=== PATIENT | female | born 1965 | race Caucasian/White ===

== ENCOUNTER 2017-10-08 11:10 | Inpatient (IN) ==
[2017-10-08] MEDS ORDERED: ONDANSETRON 4 MG/2 ML INJECTION IVP ONE (11:16)
[2017-10-08] MEDS ORDERED: NS 1,000 ML IV ONE (11:16)
--- NOTE | 2017-10-08 11:16 | Emergency Department Report ---
GI Bleed HPI - General Stated complaint: recal bleed Time Seen by Provider: 10/08/17 11:15 - Related Data Home Medications Medication Instructions Recorded Confirmed Amlodipine [Norvasc] 10 mg PO DAILY 09/23/17 10/08/17 Atorvastatin [Lipitor] 80 mg PO HS 09/23/17 10/08/17 Lisinopril [Prinivil] 20 mg PO DAILY 09/23/17 10/08/17 Cyclobenzaprine [Flexeril] 10 mg PO TID PRN 10/08/17 10/08/17 Allergies Allergy/AdvReac Type Severity Reaction Status Date / Time morphine Allergy Verified 10/08/17 11:21 PFS Patient Stated Medical History Cerebrovascular Accident Yes: 07/19/17; hemmoragic Hearing Loss Yes: R side Hypertension Yes Asthma Yes Hiatal Hernia Yes Hx Urinary Tract Infection Yes Other Hematologic Blood thinner Other Musculoskeletal Yes: R sided deficit due to CVA Now No - Social History Smoking status: Former smoker Course Vital Signs Temperature 97.7 F 10/08/17 11:11 Pulse Rate 90 10/08/17 11:11 Respiratory Rate 20 10/08/17 11:11 Blood Pressure 122/77 10/08/17 11:11 Pulse Oximetry 99 10/08/17 11:11 Temperature 97.7 F 10/08/17 11:11 Pulse Rate 79 10/08/17 13:31 Respiratory Rate 16 10/08/17 13:31 Blood Pressure 122/70 10/08/17 13:31 Pulse Oximetry 97 10/08/17 13:31 GI Bleed - Lab Data Result diagrams: 10/08/17 11:29 10/08/17 11:29 Lab Results 10/08/17 10/08/17 10/08/17 Range/Units 11:29 11:29 11:29 WBC 14.3 H (4.5-11.0) T/MM3 RBC 4.23 (4.00-5.20) M/MM3 Hgb 12.6 (12-16) GM/DL Hct 38.5 (36-46) % MCV 91.0 (80-100) UM3 MCH 29.8 (26-34) UUG MCHC 32.7 (31-37) GM/DL RDW Std Deviation 42.5 (36.9-50.2) FL Plt Count 338 (130-400) T/MM3 MPV 9.8 (9.4-12.4) UM3 Immature Gran % (Auto) 0.1 (0.0-0.5) % Neut % (Auto) 77.5 H (33-66) % Lymph % (Auto) 16.3 L (23-45) % Dillon % (Auto) 4.7 (0-9.0) % Eos % (Auto) 1.2 (0-4) % Baso % (Auto) 0.2 (0-2) % Neut # (Auto) 11.1 H (1.8-7.7) T/MM3 Lymph # (Auto) 2.3 (1-4.8) T/MM3 Dillon # (Auto) 0.7 (0-0.8) T/MM3 Eos # (Auto) 0.2 (0-0.5) T/MM3 Baso # (Auto) 0.0 (0-0.2) T/MM3 Abs Immat Gran (auto) 0.02 (0.00-0.03) T/MM3 Turbidity < 20 (0-20) Sodium 143 (134-144) MEQ/L Potassium 3.9 (3.6-5) MEQ/L Chloride 105 (98-107) MEQ/L Carbon Dioxide 25 (22-30) MEQ/L Anion Gap 13 (5-15) MEQ/L BUN 23.0 H (7-17) MG/DL Creatinine 0.9 (0.7-1.2) MG/DL GFR Calculation 66 BUN/Creatinine Ratio 26 (6-26) RATIO Glucose 104 (65-110) MG/DL Calculated Osmolality 279 (261-280) MOSM/KG Calcium 9.8 (8.4-10.2) MG/DL Total Bilirubin 0.60 (0.20-1.30) MG/DL Icterus Index < 2 (0-7) AST 17 (14-36) U/L ALT 22 (9-52) U/L Alkaline Phosphatase 131 H (38-126) U/L Total Protein 8.0 (6.3-8.2) G/DL Albumin 4.6 (3.5-5.0) G/DL Globulin 3.4 (2.4-3.6) G/DL Albumin/Globulin Ratio 1.4 (1.1-2.2) RATIO Lipase 42 (23-300) U/L Specimen Hemolysis < 15 (0-25) Ur Collection Type Urine Color (YELLOW) Urine Clarity Urine pH (5.0-8.0) Ur Specific [place] (1.015-1.025) Urine Protein (NEGATIVE) Urine Glucose (UA) (NEGATIVE) Urine Ketones (NEGATIVE) Urine Occult Blood (NEGATIVE) Urine Nitrate (NEGATIVE) Urine Bilirubin (NEGATIVE) Urine Urobilinogen (NORMAL) EU/DL Ur Leukocyte Esterase (NEGATIVE) Urine RBC (0-3) /HPF Urine WBC (0-5) /HPF Ur Squamous Epith Cells Urine Bacteria (NEGATIVE) Urine Mucus Ur Culture Indicated? Blood Type O Positive Antibody Screen Negative 10/08/17 Range/Units 12:08 WBC (4.5-11.0) T/MM3 RBC (4.00-5.20) M/MM3 Hgb (12-16) GM/DL Hct (36-46) % MCV (80-100) UM3 MCH (26-34) UUG MCHC (31-37) GM/DL RDW Std Deviation (36.9-50.2) FL Plt Count (130-400) T/MM3 MPV (9.4-12.4) UM3 Immature Gran % (Auto) (0.0-0.5) % Neut % (Auto) (33-66) % Lymph % (Auto) (23-45) % Dillon % (Auto) (0-9.0) % Eos % (Auto) (0-4) % Baso % (Auto) (0-2) % Neut # (Auto) (1.8-7.7) T/MM3 Lymph # (Auto) (1-4.8) T/MM3 Dillon # (Auto) (0-0.8) T/MM3 Eos # (Auto) (0-0.5) T/MM3 Baso # (Auto) (0-0.2) T/MM3 Abs Immat Gran (auto) (0.00-0.03) T/MM3 Turbidity (0-20) Sodium (134-144) MEQ/L Potassium (3.6-5) MEQ/L Chloride (98-107) MEQ/L Carbon Dioxide (22-30) MEQ/L Anion Gap (5-15) MEQ/L BUN (7-17) MG/DL Creatinine (0.7-1.2) MG/DL GFR Calculation BUN/Creatinine Ratio (6-26) RATIO Glucose (65-110) MG/DL Calculated Osmolality (261-280) MOSM/KG Calcium (8.4-10.2) MG/DL Total Bilirubin (0.20-1.30) MG/DL Icterus Index (0-7) AST (14-36) U/L ALT (9-52) U/L Alkaline Phosphatase (38-126) U/L Total Protein (6.3-8.2) G/DL Albumin (3.5-5.0) G/DL Globulin (2.4-3.6) G/DL Albumin/Globulin Ratio (1.1-2.2) RATIO Lipase (23-300) U/L Specimen Hemolysis (0-25) Ur Collection Type Urine, void-cc/notcc Urine Color Yellow (YELLOW) Urine Clarity Clear Urine pH 6.0 (5.0-8.0) Ur Specific [place] 1.015 (1.015-1.025) Urine Protein Trace A (NEGATIVE) Urine Glucose (UA) Negative (NEGATIVE) Urine Ketones 1+ A (NEGATIVE) Urine Occult Blood 1+ A (NEGATIVE) Urine Nitrate Negative (NEGATIVE) Urine Bilirubin 1+ A (NEGATIVE) Urine Urobilinogen 0.2 (NORMAL) EU/DL Ur Leukocyte Esterase 2+ A (NEGATIVE) Urine RBC 0-1 (0-3) /HPF Urine WBC 10-20 H (0-5) /HPF Ur Squamous Epith Cells 5-10 Urine Bacteria Trace H (NEGATIVE) Urine Mucus Present Ur Culture Indicated? Cult not indicated Blood Type Antibody Screen Disposition Clinical Impression: Colitis Disposition: 02 To [facility] [place] Acute Care Condition: Stable Prescriptions: No Action Lisinopril [Prinivil] 20 mg PO DAILY Amlodipine [Norvasc] 10 mg PO DAILY Atorvastatin [Lipitor] 80 mg PO HS Cyclobenzaprine [Flexeril] 10 mg PO TID PRN PRN Reason: Muscle Spasm Referrals: Demarcus Avila DO [Family Provider] - Time of Disposition: 13:32 - Seen By: physician
[2017-10-08] MEDS: SALINE FLUSH 10ml SYRINGE IVF PRN (11:27)
[2017-10-08] MEDS ORDERED: FentaNYL 100 MCG/2 ML INJECTION IVP ONE ×2 (11:40→13:27)
[2017-10-08] MEDS ORDERED: SALINE FLUSH 10ml SYRINGE ONE (12:16)
[2017-10-08] MEDS ORDERED: IOHEXOL 300mg/ml 75ml INJECTION ONE (12:16)
--- NOTE | 2017-10-08 12:52 | CT Scan Report ---
Indication: left lower quadrant abdominal pain question diverticulitis v PROCEDURE: CT abdomen pelvis w con: Encounter: Initial Comparison: None Technique: Axial CT images were performed through the abdomen and pelvis after the administration of intravenous contrast. Coronal and sagittal two-dimensional reformats. Automated Exposure Control and Iterative Reconstruction dose reducing techniques were utilized. Contrast: Omnipaque 300 67 mL Findings: The lung bases are grossly clear. The liver is normal. The gallbladder is unremarkable. The spleen is normal. The pancreas is normal. The adrenal glands are normal. Right kidney is abnormal in appearance with a partial staghorn calculus seen measuring 2.5 x 1.5 cm in the lower half of the kidney. There is associated cortical loss and scarring with prominent cortical cysts and dilated lower pole calyces with prominent stones. Left kidney shows small nonobstructing stones and a few small upper pole cysts. No abdominal or pelvic lymphadenopathy. The bladder is thick walled but decompressed. The uterus is absent. Trace free pelvic fluid. There is significant inflammation and wall thickening involving the proximal to mid sigmoid colon extending through the descending colon to the level of the splenic flexure. There is significant pericolonic inflammatory fat stranding. No extraluminal gas or abscess. No evidence of a colon obstruction. No evidence of a small bowel obstruction. The celiac, SMA and LEXIE appear patent. Only mild atherosclerotic plaque is seen in the abdominal aorta. Bone windows show postoperative changes at the pubic symphysis. Mild degenerative change in the spine. Impression: 1. Long segment inflammation of the left colon. This is too extensive for diverticulitis. Differential considerations would include infectious or inflammatory colitis such as C. difficile colitis, Crohn's disease or ulcerative colitis. 2. Bilateral nephrolithiasis with a large staghorn type calculus seen in the right kidney. .
[2017-10-08] MEDS ORDERED: CIPROFLOXACIN IVPB 400 MG/200 ML BAG IV SCH (13:58)
[2017-10-08] MEDS ORDERED: MetroNIDAZOLE PB 250 MG/50 ML BAG IV SCH (13:58)
[2017-10-08] MEDS: NS 1,000 ML IV SCH ×2 (14:08→21:59)
[2017-10-08] MEDS: FentaNYL 100 MCG/2 ML INJECTION IVP PRN ×3 (15:52→21:56)
--- NOTE | 2017-10-08 16:43 | History & Physical Report ---
History of Present Illness Date: 10/08/17 Chief complaint: colitis and gastrointestinal bleeding. HPI: patient was in her usual state of health until yesterday evening. at that time she started in with acute left lower quadrant abdominal pain. she initially had several episodes of nausea and normal appearing vomitus which progressed to bright red bloody stools and diarrhea. she had about 4 episodes of vomiting and overall about 10 episodes of bright red bloody stools. she was scheduled for routine follow in the clinic today but immediately sent to the ER for further workup. in the ER she received copious amounts of IV normal saline and fentanyl prn for the pain. cbc was noted to have a WBC of about 14,000 and was otherwise normal. cmp was generally unremarkable. a UA did show some evidence of a UTI. a CT of the abdomen and pelvis was noted to demonstrate a significant colitis with the differential being inflammatory bowel versus infectious in nature. patient was initially noted to be lightheaded upon standing but this has improved. patient was initially tachycardiac in the clinic with HR's in the 110's but this has resolved with IV fluids. otherwise vitals have been stable. she is otherwise currently stable at this time. no fevers. maybe some mild chills. some moderate generalized fatigue and weakness. no falls, trauma, injuries. no new or changing headaches. no photophobia or meningeal symptoms. has had antibiotics for a UTI within the last couple of months but no other antibiotic exposures. no recent travel, camping, sick exposures, rosales exposures, outdoor exposures. no new rashes or skin changes. dizziness improved with IV fluids. no vertigo, ear pain, sinus pain, sore throat, runny nose. no new or changing numbness/weakness/tingling/ pain in extremities or anywhere else. no new deficits from when she had her stroke a few months ago. lightheaded episodes would last a few seconds to a couple of minutes and only when she's get up briskly from a seated or supine position. as noted, this has improved per report. no confusion, altered mentation, obtundation, encephalopathic symptoms, meningeal symptoms, photophobia. no chest pain, SOA, orthopnea, PND, new edema, leg asymemtry, changes in exertional tolerance. no palpitations, cough, sputum production, hemoptysis. no new or changing boggy/inflammed/swollen/painful joints or focal muscle groups. no other abdominal pain. no nausea/vomiting since last night. has been able to keep fluids down. very little solid oral intake. appetite diminished. no unintentional weight loss, night sweats, constitutional symptoms. no hematemesis, coffee ground emesis, melena. no constipation. stools bloody/watery as noted above. has had some moderate burning with urination over the last few days. no flank pain, nocturia, urinary frequency, hematuria, urinary/bowel incontinance, urinary retention. no homicidal/ suicidal ideations. ROS negative for food borne illness and risk factors thereof. 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 no new issues othewise at is time. Review of Systems - Constitutional Constitutional: Present: as per HPI - EENMT Eyes: Present: as per HPI Ears: Present: as per HPI Balance: Present: as per HPI Nose: Present: as per HPI Mouth/Throat: Present: as per HPI - Cardiovascular Cardiovascular: Present: as per HPI Vascular: Present: see HPI Cardiovascular Comments: no pallor or cyanosis of extremities. - Respiratory Respiratory: Present: as per HPI - Gastrointestinal Gastrointestinal: Present: as per HPI - Genitourinary Genitourinary: Present: as per HPI Menstruation: as per HPI Genitourinary Comments: no pelvic pain or abnormal vaginal bleeding. not trying to get and not . - Musculoskeletal Musculoskeletal: Present: as per HPI - Integumentary/Breasts Integumentary: Present: as per HPI - Neurological Neurological: Present: as per HPI - Psychiatric Psychiatric: Present: as per HPI - Endocrine Endocrine: Present: as per HPI - Hematologic/Lymphatic Hematologic/Lymphatic: Present: as per HPI - Allergic/Immunologic Allergic/Immunologic: Present: as per HPI (see above for allergies and ADR's. ) Past Medical History Patient Stated Medical History Cerebrovascular Accident Yes: 07/19/17; hemmoragic Hearing Loss Yes: R side r/t stroke Hypertension Yes Asthma Yes Hiatal Hernia Yes Hx Urinary Tract Infection Yes Other Musculoskeletal Yes: R sided deficit due to CVA Other Infectious Yes: post op staph infection Now No hyperlipidemia Surgical History: -hysterectomy. -hernia repair. -cystocele/rectocele repair. -laminectomy Family History: -father alive, diagnosed with hypertension and CAD. -mother at age 62. had HTN. Family History Updates: -see above. - Social History Smoking status: Former smoker Social history: -former smoker. does sound like she still occasionally smokes. -no significant alcohol use. -no illicit drug or substance use. -lives at home with ex-. Medications Home Medications Medication Instructions Recorded Confirmed Type Amlodipine [Norvasc] 10 mg PO DAILY 09/23/17 10/08/17 History Atorvastatin [Lipitor] 80 mg PO HS 09/23/17 10/08/17 History Lisinopril [Prinivil] 20 mg PO DAILY 09/23/17 10/08/17 History Cyclobenzaprine [Flexeril] 10 mg PO TID PRN 10/08/17 10/08/17 History Allergies Allergy/AdvReac Type Severity Reaction Status Date / Time morphine Allergy Verified 10/08/17 11:21 Exam Vital Signs: Temperature 97.3 F 10/08/17 13:58 Pulse Rate 71 10/08/17 13:58 Respiratory Rate 18 10/08/17 13:58 Blood Pressure 124/78 10/08/17 13:58 Pulse Oximetry 96 10/08/17 13:58 Height/Weight/BMI: Height 1.65 m Weight 56.7 kg Body Mass Index 20.7 - Constitutional Present: cooperative Comments: not combative, agitated or somnolent. appears mildly ill in clinic. - Routine HEENT Exam Head: Present: normocephalic, atraumatic Eye: Present: EOMI, PERRL ENT: Present: mucous membranes dry (moderately dry.) Comments: nares patent, pat normal. TM's clear b/l at this time. external auditory canals normal b/l at this time. no sinus pain to palpation. throat clear. no mastoid tenderness b/l at this time. no photophobia. no clinical evidence of meningitis at this time. no nuchal rigidity. - Routine Neck Exam Present: supple Comments: no JVD. see above. - Routine Chest/Breast/Axilla Exam Comments: no chest wall tenderness. - Routine Respiratory Exam Comments: LCTAB. no crackles, wheezes, rales. lung sounds heard in all lung victoria b/l at this time. moving air well. lung sounds heard in all lung victoria b/l at this time. no respiratory distress, retractions, accessory muscle use, stridor , airway compromise b/l at this time. - Routine Cardiovascular Exam Present: RRR, no murmur Comments: cardiac exam unchanged from usual baseline. no new edema. legs symmetrical and compartments soft b/l in LE's at this time. clinically well perfused in all 4 extremities b/l at this time. no boggy/inflammed/swollen/tender joints or focal muscle groups b/l at this time. no pallor or cyanosis in extremities. - Routine Abdominal Exam Present: soft (X4.), normoactive bowel sounds (X4.), tenderness (moderate tenderness to moderately deep palpation in LLQ. no other abdominal tenderness to palpation in any of the other quadrants of abdomen at this time. ), non distended (X4.) Comments: no rebound, guarding, rigidity, organomegally, ascites, jaundice, distension. bowel sounds mildly hyperactive in all 4 quadrants at this time. - Routine Rectal Exam Comments: see rectal exam done in ER by ER physician. - Routine Exam Comments: no tenderness over bladder area. no clinical evidence of upper or lower UTI at this time. - Routine Extremities Exam Comments: no pallor or cyanosis of extremities. see the above. - Routine Back/Spine/Pelvis Exam Comments: see above. - Routine Skin Exam Present: intact Comments: no skin changes from previous to uncovered areas at current time. - Routine Neurological Exam Present: alert, oriented X3, CN II-XII intact sensation/motor/muscle strength/DTR's unchanged from patient's usual baseline in extremities b/l X4 at this time. no clinical evidence of encephalopathy, delerium, michell, altered mentation, confusion, obtundation. alert and oriented X3 and to patient's usual baseline. - Routine Psychiatric Exam Present: normal affect, normal thought process, cooperative Comments: no homicidal/suicidal ideations. no changes from usual baseline. Results - Labs CBC & Chem 7: 10/08/17 22:08 10/08/17 11:29 Assessment and Plan Assessment and Plan: acute lower gastrointestinal bleed and colitis of uncertain etiology, most likely infectious but inflammatory bowel/neoplastic in the differential as well. acute cystitis leukocytosis secondary to the above. 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 no episodes of bleeding since admission. neurologically stable at this time. -follow cbc, coag panel, TSH, magnesium now. see above for other testing and results from this stay. patient is typed and screened. check H and H every 6 hours and call parameters provided. -urine culture pending. -continue IV normal salinen at 125ml/hr and patient bolused with normal saline already in ER. continue IV cipro and flagyl. continue IV fentanyl for pain. if nausea/vomiting become an issue will write for zofran. -hold home PO tylenol, lisinopril, norvasc, lipitor. patient's bp in 90's systolic in clinic but has been normotensive since IV fluids. will watch bp for now. may need to provide and IV prn medication for bp but will see. -Dr. Dunlap, surgery consulted for GI bleed and for possible endoscopy. tobacco use -patient notes very little smoking. if any s/s withdrawal would consider nicotine patch. all other chronic medical conditions stable and no other changes to plan of care at this time. ppx -SCD's for DVT ppx. pharmacologic DVT ppx contraindicated secondary to GI bleed. -restart PO diet ELENA for GI ppx. -FULL CODE -dispo heavily dependent on the above. DVT Prophylaxis: SCD's GI Prophylaxis: other (restart PO diet as soon as able.) Resuscitation Status: Full Code - Time spent with patient Time with patient PN: 50 minutes Sepsis Assessment - Evaluation SIRS Criteria: WBC > 12,000 Severe Sepsis: none seen
[2017-10-08] MEDS: MetroNIDAZOLE PB 500 MG/100 ML BAG IV SCH (22:49)
[2017-10-09] MEDS: FentaNYL 100 MCG/2 ML INJECTION IVP PRN ×12 (00:47→23:33)
[2017-10-09] MEDS: CIPROFLOXACIN IVPB 400 MG/200 ML BAG IV SCH ×2 (04:11→17:03)
[2017-10-09] MEDS: MetroNIDAZOLE PB 500 MG/100 ML BAG IV SCH ×3 (05:23→22:21)
[2017-10-09] MEDS: SALINE FLUSH 10ml SYRINGE IVF PRN ×2 (05:24→20:24)
[2017-10-09] MEDS: NS 1,000 ML IV SCH ×3 (07:15→11:16)
--- NOTE | 2017-10-09 09:02 | Progress Note ---
- Date 10/09/17 Subjective: no acute events overnight. no events called on telemetry. patient did well on clear liquids. abdominal pain improved significantly as has number of stools. was feeling good and attempted a regular diet. ate all her supper but has developed nausea now. abdominal pain in LLQ has come back now as well. as the interview goes on both of these issues improve though. still passing flatus normally. no new or worsening abdominal distension. last bloody BM was earlier today but last BM 2 hours ago patient states was more formed and there was no gross blood in it. she did have X4 bloody bowel movements yesterday with the same morphology as that which got her admitted. she is optimistic this has resolved. vitals have been stable in general. no new or changing headaches, stroke symptoms, focal neurologic deficits, fevers , chills, body aches. doesn't feel nearly as systemically unwell now as she did yesterday and for this she is thankful. no new or changing skin changes, new rashes, boggy/inflammed/painful/swollen focal joints or muscle groups. no new or changing ear pain, sinus pain, sore throat, URI symptoms. no new or changing runny nose, chest pain, SOA, orthopnea, PND, new edema, leg asymmetry, changes in exertional tolerance, palpitations, cough, sputum production, hemoptysis. no new abdominal pain. no GERD symptoms, vomiting, constipation, melena. no nausea until just now. no other GI warning symptoms other than as noted. no mood changes, depression symptoms, anxiety, altered mentation, confusion, obtundation, psychosis, michell. no dysuria, hematuria, urinary frequency, flank pain, nocturia, urinary/bowel incontinance, urinary retention, polyuria, oliguria, other urinary symptoms/changes. urinary symptoms from admission resolved at this time. no meningeal symptoms. dizziness and orthostatic symptoms from yesterday have completely resolved. no new issues otherwise at this time. Objective Vital signs: Temperature 96.2 F L 10/09/17 08:01 Pulse Rate 63 10/09/17 08:01 Respiratory Rate 14 10/09/17 08:01 Blood Pressure 90/61 10/09/17 08:01 Pulse Oximetry 90 10/09/17 08:01 Rhythm: Normal Sinus Rhythm Height/Weight/BMI: Height 1.65 m Weight 59.8 kg Body Mass Index 20.7 - Constitutional Present: no acute distress, cooperative. Absent: cachectic, diaphoretic, disheveled, combative, agitated, somnolent, obtunded - Routine HEENT Exam Head: Present: normocephalic, atraumatic ENT: Present: mucous membranes moist - Routine Respiratory Exam Present: CTA bilaterally. Absent: accessory muscle use, patient mechanically ventilated, dyspnea, decreased breath sounds, prolonged expiratory phase, rales , respiratory distress, rhonchi, stridor, wheezes, crackles, distant breath sounds, diminished air movement Comments: lung sounds heard in all lung victoria b/l at this time. all findings above bilateral unless otherwise noted. - Routine Cardiovascular Exam Present: RRR, no murmur Comments: cardiac exam unchanged from previous baseline. no new edema. legs symmetrical and compartments soft b/l in LE's at this time. clinically well perfused in all 4 extremities b/l at this time. no boggy/inflammed/swollen focal joints or muscle groups. no pallor or cyanosis of extremities. - Routine Abdominal Exam Present: soft (X4.), normoactive bowel sounds (X4.), tenderness (in LLQ to deep palpation, moderate tenderness noted. this is improved from yesterday though.) , non distended (X4.). Absent: non tender (see above. ), distended (see above. ), rebound, guarding, firm, rigid, organomegaly, mass Comments: no ascites, distension, jaundice. - Routine Exam Comments: no tenderness over bladder area. no clinical evidence of upper or lower UTI b/ l at this time. - Routine Extremities Exam Absent: cyanosis, joint swelling, pallor, extremity cold to touch Comments: see above. - Routine Back/Spine/Pelvis Exam Comments: see the above. - Routine Musculoskeletal Exam Musculoskeletal: Present: no joint swelling, no erythema, moving extremities well. Absent: joint erythera, joint swelling - Routine Skin Exam Present: intact Comments: no skin changes from previous to uncovered areas. - Routine Neurological Exam Present: alert, oriented X3 no changes neurologically from previous baseline in all 4 extremities b/l at this time. cranial nerves grossly unchanged from usual baseline. affect and cognition unchanged from usual baseline. no clinical evidence of michell, depression, anxiety, altered mentation, confusion, obtundation, encephalopathy, psychosis, delerium at this time. - Routine Psychiatric Exam Present: normal affect, normal thought process, cooperative. Absent: suicidal ideation, homicidal ideation, auditory hallucinations, visual hallucinations, tactile hallucinations, depressed, anxious, agitated, paranoid, manic Comments: see the above. Results - Labs CBC & Chem 7: 10/09/17 13:58 10/09/17 05:20 Microbiology Results: Microbiology 10/08/17 18:09 Urine, Voided (Cc/notcc) Urine Culture - Preliminary Culture Initiated - Results Pending Assessment and Plan Assessment and Plan: acute lower gastrointestinal bleed and colitis secondary to c-diff colitis acute cystitis leukocytosis secondary to the above, resolved. dilutional and mild blood loss anemia mild fasting hyperglycemia, likely from stress. nausea secondary to diagnosis number one subclinical hyperthyroid, likely from acute illness mild elevation in alk phos on admission, resolved. 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 remind nursing to call if any bloody stools as we would consider a move to the ICU should this reoccur. continue telemetry. patient current nausea and ab pain after eating would suggest we need to scale back on her diet as noted above. will go back to clear liquids and advance as tolerated. patient's symptoms improve significantly as interview goes on which is a good sign. -cbc's with resolved leukocytosis and mild dilutional/blood loss anemia which is stable over the last couple of draws. otherwise cbc's unremarkable. cmp's with normal LFT's now, mild hyperglycemia in 120's and otherwise unremarkable. TSH a bit low at 0.36. magnesium and coag panels look ok. see previous notes for other testing and results from this stay. stool wbc positive and stool PCR with c-diff and otherwise unremarkable. patient is typed and screened. -urine culture pending. -follow H and H q12hrs with call parameters. cbc, cmp, free T3, free T4 ordered for the AM. -continue IV normal saline as is for now. have to continue IV cipro now given UTI and on day 2 of this. continue IV flagyl and increased to 500mg IV q8hrs. this is on day 2 as well. continue IV fentanyl prn for pain. zofran IV prn provided for nausea/vomiting. -continue to hold home PO tylenol, lisinopril, norvasc, lipitor. patient's bp's have often been low before and she's not out of her normal range at this time but wouldn't want to go any lower. she has generally been normotensive. -Dr. Dunlap, surgery consulted for GI bleed and for possible endoscopy. plan is to not do endoscopy until current acute episode is resolved. this may change if she re-bleeds. COPD -restart patient's symbicort BID scheduled and ventolin prn. tobacco use -no s/s tobacco withdrawal. if any s/s withdrawal would consider nicotine patch. all other chronic medical conditions stable and no other changes to plan of care at this time. ppx -SCD's for DVT ppx. pharmacologic DVT ppx contraindicated secondary to GI bleed. -PO diet as above for GI prophylaxis. -FULL CODE -dispo maybe discharge as soon as tomorrow but most likely Saturday at this trajectory. DVT Prophylaxis: SCD's GI Prophylaxis: other (PO diet.) Resuscitation Status: Full Code - Time spent with patient Time with patient PN: 25 minutes - Physician Narrative Narrative: Date: 10/09/17 Time: 818 Sepsis Assessment - Evaluation Severe Sepsis: none seen
--- NOTE | 2017-10-09 17:07 | Consultation ---
DATE OF CONSULTATION 10/08/2017 CONSULTING PHYSICIAN Marlon Irby MD REQUESTING PHYSICIAN Dr. Demarcus Avila. REASON FOR CONSULTATION Infectious versus inflammatory colitis. IMPRESSION 1. Left-sided colitis - most likely infectious in etiology. 2. GI bleeding - likely resultant from colitis. 3. Status post recent hemorrhagic stroke on 07/13/2017. PLAN 1. Prior to any consideration of endoscopy Yaneli will need a GI panel to see if an infectious etiology for her colitis is discovered. 2. I do think that Yaneli needs a colonoscopy since she is over age 51 but if she has infectious colitis I would not want to perform her colonoscopy during active colitis if it is not necessary. 3. Even if infectious colitis is determined as her etiology she will need colonoscopy based on her age. I would perform this after a period of three months if the colitis is infectious in etiology. 4. If an infectious etiology is not confirmed then she will need colonoscopy to obtain biopsies of the colon to try to help determine the etiology of her colitis. HISTORY OF PRESENT ILLNESS Yaneli is a 52-year-old female who has never had prior colonoscopy. She does have a history complicated by hemorrhagic stroke on 07/13/2017. This has left her with right-sided deficits of a lack of sensation and some motor problems. She has felt more weak lately. She has also felt dizzy and like she was going to pass out for the last three weeks. Yesterday she had five episodes of vomiting. She then started passing some bright red blood per rectum. Her bleeding started at around 7:00 p.m. She had seven to eight stools which were bright red blood along with some clots. She had a clinic appointment scheduled so she waited to be seen at [facility] but was then referred to the emergency department. She did have Hemoccult-positive stools and a CT scan was performed that showed colitis involving the left colon. She has had abdominal pain that she describes as sharp and stabbing pain. She has some pain constantly and her pain is 4/10 at its best. She will have brief episodes of more severe pain that increase up to 9 out of 10 in severity. She does feel like her pain is better with pain medication and has been as low as 3 out of 10 in severity. She only notices pain on the left side of the abdomen but she is unsure if she would have any symptoms on the right due to her stroke. PAST MEDICAL HISTORY 1. Frequent urinary tract infections - she has had five courses of antibiotics recently. 2. Sepsis as a result of postoperative Staphylococcus infection - 2006. 3. Hemorrhagic stroke - 07/13/2017. 4. Hypertension. 5. Right breast cancer - only treated with chemotherapy and radiation therapy. She was not willing to proceed with surgery. Her oncologist is Dr. Farah. She was diagnosed in approximately 2009. 5. Asthma. PAST SURGICAL HISTORY 1. Vaginal hysterectomy - age 29. 2. Unilateral oophorectomy - age 30. 3. Contralateral oophorectomy - age 14. 4. Cystocele and rectocele repair - age 41. 5. Laminectomy - 2006. ALLERGIES Morphine which causes hives. MEDICATIONS The patient's home medications were reviewed. See the admission medical reconciliation. SOCIAL HISTORY The patient is single. She has three healthy children. She says she quit smoking in August 2017. She was a [id number] smoker but started smoking at age 17 for an approximate history of less than 15 pack-years of smoking. She drank previously but has not drunk any alcohol lately. She denies illicit drug use. FAMILY HISTORY Father - Stroke, heart problems. Mother - Emphysema, hypertension, diabetes mellitus. Maternal grandfather - stroke. Maternal grandmother - heart disease. Paternal grandfather - prostate cancer. Paternal grandmother - unknown cancer. REVIEW OF SYSTEMS Ten-point review of systems was negative except for History of Present Illness and the following: NEUROLOGIC: She reports a headache today. She has had some hearing and vision problems on the right since her stroke. She has also had decreased sensation on the right side and some motor deficits on the right. RESPIRATORY: She does use an as-needed inhaler. GENITOURINARY: She reports dysuria and frequent urinary tract infections lately. PHYSICAL EXAMINATION VITAL SIGNS: Temperature 96.7, pulse 72, blood pressure 120/79, respiratory rate 12, oxygen saturation 94% on room air. GENERAL: The patient is awake, alert, in no acute distress. HEENT: Sclerae clear. Extraocular muscles intact. NECK: Supple with a midline trachea. No lymphadenopathy or thyromegaly are noted. HEART: Regular rate and rhythm. LUNGS: Clear to auscultation bilaterally. ABDOMEN: Soft, tender along the left abdomen. She has no tenderness in the right abdomen. There is no guarding or rebound noted. No masses are noted. No organomegaly or fluids are noted. EXTREMITIES: No clubbing, cyanosis or edema. NEUROLOGIC: Cranial nerves II-XII are grossly intact. 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 She also reports decreased sensation on the right half of the body. PSYCHIATRIC: Normal mood and affect. LABORATORY DATA White blood cell count 14.3, hemoglobin 12.6. IMAGING CT scan of the abdomen and pelvis from today was personally reviewed by me as well as with the radiology report. There was significant inflammation along the left colon through the mid sigmoid colon. The rectum was spared. No abscess was identified. PATIENT EDUCATION The situation was discussed with the patient and her friend who is present. I did explain the need to await stool testing prior to colonoscopy. GALDINO
[2017-10-09 17:12] VITALS: BMI 21.9
[2017-10-09] MEDS ORDERED: ONDANSETRON 4 MG/2 ML INJECTION IVP PRN (20:18)
[2017-10-09] MEDS ORDERED: ALBUTEROL 2.5mg/3ml (0.083%) NEB AEROSOL PRN (20:56)
[2017-10-10] MEDS: FentaNYL 100 MCG/2 ML INJECTION IVP PRN ×10 (00:55→22:44)
[2017-10-10] MEDS: BUDESONIDE/FORMOTEROL 80/4.5mcg INHALER IH SCH ×3 (02:58→20:29)
[2017-10-10] MEDS: NS 1,000 ML IV SCH ×3 (04:18→22:46)
[2017-10-10] MEDS: CIPROFLOXACIN IVPB 400 MG/200 ML BAG IV SCH (04:19)
[2017-10-10] MEDS: MetroNIDAZOLE PB 500 MG/100 ML BAG IV SCH ×3 (06:27→22:24)
[2017-10-10] MEDS: ALBUTEROL 2.5mg/3ml (0.083%) NEB AEROSOL SCH ×4 (07:44→20:36)
[2017-10-10] MEDS ORDERED: BUDESONIDE/FORMOTEROL 80/4.5mcg INHALER IH SCH (09:00)
--- NOTE | 2017-10-10 09:52 | Progress Note ---
DATE OF VISIT 10/09/2017 REASON FOR VISIT Follow colitis. SUBJECTIVE Yaneli continues to have some left-sided abdominal pain. She has had some passage of bright red blood per rectum and her current nurse reported one episode this morning. She has tolerated a clear liquid diet well. She is having some difficulty with pain control. OBJECTIVE VITALS: Afebrile with stable vitals on room air. GENERAL: The patient is awake and alert, in no acute distress. ABDOMEN: Soft, tender along the left abdomen with no guarding or rebound noted. LABORATORY DATA White blood cell count was 10.6. Hemoglobin had increased to 11.7 on recheck this afternoon. GI panel revealed a positive C. difficile toxin. IMPRESSION 1. C. difficile colitis. 2. GI bleeding - likely related to colitis. Her hemoglobin has been stable. 2. Recent hemorrhagic stroke in July of 2017. PLAN 1. Given the infectious etiology for her colitis, I do not think that colonoscopy should be performed currently. 2. Continue Flagyl for treatment of C. difficile colitis. 3. I do think she will need a screening colonoscopy, but given her history of stroke I think this should be 6 months from her stroke. This would be in January 2018. 4. I will sign off of her case since there does not appear to be need of endoscopy currently. Please do not hesitate to contact me if I can be of any further assistance. GALDINO
--- NOTE | 2017-10-10 16:05 | Progress Note ---
- Date 10/10/17 Subjective: no acute issues overnight. no events called on telemetry. patient doing remarkably well. abdominal pain improved greatly. has been tolerating PO intake well today. had X1 mostly formed, normal appearing stool since our last visit. no bloody/black stools. no new abdominal pain. no fevers, chills, fatigue, weakness, falls, trauma, injuries, URI symptoms, skin changes, new rashes, boggy/inflammed/painful/swollen focal joints or muscle groups. no headaches, photophobia, meningeal symptoms, encephalopathic symptoms. no ear pain, sinus pain, runny nose. no dizziness, syncope, orthostatic symptoms, vitals have been stable. no dysuria, hematuria, urinary frequency, flank pain, nocturia, urinary/bowel incontinance, urinary retention. no seizure symptoms, stroke symptoms, focal neurologic deficits, cranial nerve symptoms/deficits, photophobia, meningeal symptoms, chest pain, SOA, heart failure symptoms, palpitation, cough, sputum production, hemoptysis. no hematemesis or coffee ground emesis. no GERD symptoms. no confusion, altered mentation, obtundation , depression, anxiety, homicidal/suicidal ideations. male friend present for most of encounter today. no new issues otherwise at this time. Objective Vital signs: Temperature 98.8 F 10/10/17 15:50 Pulse Rate 68 10/10/17 15:50 Respiratory Rate 16 10/10/17 15:50 Blood Pressure 121/73 10/10/17 15:50 Pulse Oximetry 96 10/10/17 15:50 Rhythm: Normal Sinus Rhythm Height/Weight/BMI: Height 1.65 m Weight 60.4 kg Body Mass Index 21.9 - Constitutional Present: no acute distress, cooperative. Absent: cachectic, diaphoretic, disheveled, combative, agitated, somnolent, obtunded - Routine HEENT Exam Head: Present: normocephalic, atraumatic ENT: Present: mucous membranes moist - Routine Respiratory Exam Present: CTA bilaterally. Absent: accessory muscle use, patient mechanically ventilated, dyspnea, decreased breath sounds, prolonged expiratory phase, rales , respiratory distress, rhonchi, stridor, wheezes, crackles, distant breath sounds, diminished air movement Comments: lung sounds heard in all lung victoria b/l at this time. no respiratory distress. all findings above bilateral unless otherwise noted. - Routine Cardiovascular Exam Present: RRR, no murmur Comments: cardiac exam unchanged from usual baseline. no new edema. no boggy/inflammed/ swollen focal joints or muscle groups. no pallor or cyanosis of extremities b/ l X4. legs symmetrical and compartments soft b/l in LE's at this time. clinically well perfused in all 4 extremities b/l at this time. - Routine Abdominal Exam Present: soft (X4.), normoactive bowel sounds (X4.), tenderness (mild tenderness to deep palpation only in LLQ. this is much improved from last exam. no other tenderness in abdomen X4 quadrants. ), non distended (X4.), non tender (see above. much improved. ). Absent: distended (x4.), rebound, guarding, firm, rigid, organomegaly, mass Comments: no ascites, jaundice, distension at this time. - Routine Exam Comments: no tenderness over bladder area. no clinical evidence of upper or lower UTI b/ l at this time. - Routine Extremities Exam Absent: cyanosis, joint swelling, pallor, extremity cold to touch Comments: no new edema b/l in LE's at this time. - Routine Back/Spine/Pelvis Exam Comments: see the above. - Routine Musculoskeletal Exam Musculoskeletal: Present: no joint swelling, moving extremities well. Absent: no erythema, joint erythera, joint swelling - Routine Skin Exam Present: intact Comments: no skin changes from previous to uncovered areas b/l at this time. - Routine Neurological Exam Present: alert, oriented X3 no changes neurologically from usual baseline in extremities b/l X4 or to cranial nerves grossly. no clinical evidence of depression, michell, altered mentation, confusion, obtundation, encephalopathy, psychosis, delerium at this time. no changes from usual baseline. - Routine Lymphatic Exam Lymphatic: Absent: lymphedema - Routine Psychiatric Exam Present: normal affect, normal thought process (for patient.), cooperative. Absent: auditory hallucinations, visual hallucinations, tactile hallucinations, depressed, anxious, agitated, paranoid, manic Comments: see the above. Results - Labs CBC & Chem 7: 10/10/17 16:17 10/10/17 04:08 Microbiology Results: Microbiology 10/08/17 18:09 Urine, Voided (Cc/notcc) Urine Culture - Final Mixed Bacterial Arlette Present -No further testing will be performed Assessment and Plan Assessment and Plan: acute lower gastrointestinal bleed and colitis secondary to c-diff colitis acute cystitis leukocytosis secondary to the above, resolved. dilutional and mild blood loss anemia mild fasting hyperglycemia, likely from stress. nausea secondary to diagnosis number one subclinical hyperthyroid, likely from acute illness mild elevation in alk phos on admission, resolved. recent hemorrhagic CVA in July of last year HTN hyperlipidemia -continue inpatient, vitals with call parameters, I's and O's, daily weights , oxygen as needed, up with assist only, nursing to call for any blood stools, telemetry, advancing diet as tolerated. start ambulating TID with assist. will make vitals q8hrs now. -cbc's with resolved leukocytosis and hgb down to low/mid-10's. hct down accordingly as well. otherwise cbc's unremarkable from previous. urine culture negative. cmp's with mild hyperglycemia and otherwise unremarkable. see previous notes for other testing and results from this stay. -free T3 and free T 4 pending. -continue H and H q12hrs with call parameters. free T3 and free T4 pending. cbc, cmp in the AM. -d/c IV fluids now. convert IV flagyl to PO. d/c IV fentanyl and convert to prn norco. d/c IV zofran and convert to ODT form. -d/c IV cipro as urine culture negative. if urinary symptoms return will likely restart but want to give the flagyl an unopposed chance to do it's job. -continue to hold home PO tylenol, lisinopril, norvasc, lipitor. -Dr. Dunlap, surgery consulted for GI bleed and for possible endoscopy. plan is to not do endoscopy until current acute episode is resolved. this may change if she re-bleeds. COPD -continue patient's symbicort BID scheduled and ventolin prn. tobacco use -no s/s tobacco withdrawal. if any s/s withdrawal would consider nicotine patch. all other chronic medical conditions stable and no other changes to plan of care at this time. ppx -SCD's for DVT ppx. pharmacologic DVT ppx contraindicated secondary to GI bleed. -PO diet as above for GI prophylaxis. -FULL CODE -dispo discharge possible for tomorrow but will have to see. keep as inpatient today. DVT Prophylaxis: SCD's GI Prophylaxis: other (PO diet as noted above. ) Resuscitation Status: Full Code - Time spent with patient Time with patient PN: 25 minutes - Physician Narrative Narrative: Date: 10/10/17 Time: 1601 Sepsis Assessment - Evaluation Severe Sepsis: none seen
[2017-10-10] MEDS: SALINE FLUSH 10ml SYRINGE IVF PRN ×2 (20:24→22:25)
[2017-10-10] MEDS ORDERED: ONDANSETRON ODT 4 MG TABLET PO PRN (22:53)
[2017-10-10] MEDS: MetroNIDAZOLE 500 MG TABLET PO SCH (23:35)
[2017-10-11] MEDS: HYDROCODONE/APAP 5mg/325mg TABLET PO PRN ×3 (00:48→09:49)
[2017-10-11] MEDS: MetroNIDAZOLE PB 500 MG/100 ML BAG IV SCH (01:52)
[2017-10-11 08:03] VITALS: BP 125/78; TEMP 96.5
[2017-10-11] MEDS: MetroNIDAZOLE 500 MG TABLET PO SCH (08:06)
[2017-10-11] MEDS: BUDESONIDE/FORMOTEROL 80/4.5mcg INHALER IH SCH ×2 (08:44→20:13)
[2017-10-11] MEDS: ALBUTEROL 2.5mg/3ml (0.083%) NEB AEROSOL SCH ×4 (08:45→20:12)
[2017-10-11 08:55] VITALS: RESP 20; O2SAT 98
--- NOTE | 2017-10-11 13:23 | Progress Note ---
- Date 10/11/17 Subjective: patient doing markedly better this AM. states she feels back to her baseline. no headaches, stroke symptoms, syncope, dizziness, near-syncope, falls, trauma, injuries, ear pain, sinus pain, sore throat, runny nose, fatigue, weakness, falls, trauma, injuries, skin changes, new rashes, confusion, altered mentation , obtundation, mood changes, homicidal/suicidal ideations. no boggy/inflammed/ painful/swollen joints or focal muscle groups. no chest pain, SOA, orthopnea, PND, new edema, leg asymmetry, changes in exertional tolerance, palpitations, cough, sputum production, hemoptysis. appetite good and has been tolerating solid food well. no bloody/black stools since our last visit. no constipation , diarrhea, hematemesis, coffee ground emesis. abdominal pain in LLQ much improved from yesterday. no new abdominal pain. no abdominal distension. no dysuria, hematuria, urinary frequency, seizure symptoms, flank pain, nocturia, urinary/bowel incontinance, polyuria, oliguria, urinary retention, other urinary symptoms/issues. no new or changing numbness/weakness/tingling/pain in extremities or anywhere else. no cranial nerve symptoms or deficits. no photophobia or meningeal symptoms. no vision changes. no events called on telemetry. no acute issues otherwise. no new issues otherwise at this time. Objective Vital signs: Temperature 96.5 F L 10/11/17 07:59 Pulse Rate 54 L 10/11/17 07:59 Respiratory Rate 20 10/11/17 08:45 Blood Pressure 125/78 10/11/17 07:59 Pulse Oximetry 98 10/11/17 08:45 Rhythm: Normal Sinus Rhythm Height/Weight/BMI: Height 1.65 m Weight 59.5 kg Body Mass Index 21.9 - Constitutional Present: no acute distress, thin, cooperative. Absent: cachectic, diaphoretic, disheveled, combative, agitated, somnolent, obtunded - Routine HEENT Exam Head: Present: normocephalic, atraumatic Eye: Absent: proptosis ENT: Present: mucous membranes moist - Routine Respiratory Exam Present: CTA bilaterally. Absent: accessory muscle use, patient mechanically ventilated, dyspnea, decreased breath sounds, prolonged expiratory phase, rales , respiratory distress, rhonchi, stridor, wheezes, crackles, distant breath sounds, diminished air movement Comments: lung sounds heard in all lung victoria b/l at this time. all findings above bilateral unless otherwise noted. - Routine Cardiovascular Exam Present: RRR, no murmur. Absent: bradycardia, tachycardia, irregular rhythm, irregularly irregular, JVD Comments: cardiac exam unchanged from previous baseline. no new edema. no boggy/ inflammed/swollen joints or focal muscle groups. legs symmetrical and compartments soft b/l in LE's at this time. clinically well perfused in all 4 extremities b/l at this time. no pallor or cyanosis of extremities. - Routine Abdominal Exam Present: soft (X4.), normoactive bowel sounds (X4.), tenderness (mild tenderness to deep palpation only in LLQ. much improved even from yesterday. no other abdominal pain to palpation at this time. ), non distended (X4.). Absent: non tender (see above. ), distended, rebound, guarding, firm, rigid, organomegaly, mass Comments: no ascites or jaundice. - Routine Exam Comments: no tenderness over bladder area. no clinical evidence of upper UTI at this time. - Routine Extremities Exam Absent: cyanosis, edema, joint swelling, pallor, extremity cold to touch - Routine Back/Spine/Pelvis Exam Comments: see above. - Routine Musculoskeletal Exam Musculoskeletal: Present: no joint swelling, no tenderness, no erythema, moving extremities well. Absent: joint erythera, joint swelling - Routine Skin Exam Present: intact Comments: no skin changes from previous to uncovered areas. - Routine Neurological Exam Present: alert, oriented X3 no changes neurologically from usual baseline. affect and cognition unchanged from usual baseline. no neurologic changes in extremities X4 or otherwise grossly at this time. no clinical evidence of depression, anxiety, altered mentation, confusion, obtundation, encephalopathy at this time. no photophobia or clinical evidence of meningitis at this time. - Routine Lymphatic Exam Lymphatic: Absent: lymphedema - Routine Psychiatric Exam Present: normal affect, normal thought process, cooperative. Absent: suicidal ideation, homicidal ideation, auditory hallucinations, visual hallucinations, tactile hallucinations, depressed, anxious, agitated, paranoid, manic Comments: see the above. Results - Labs CBC & Chem 7: 10/11/17 06:08 10/11/17 06:08 Microbiology Results: Microbiology 10/08/17 18:09 Urine, Voided (Cc/notcc) Urine Culture - Final Mixed Bacterial Arlette Present -No further testing will be performed Assessment and Plan Assessment and Plan: acute lower gastrointestinal bleed and colitis secondary to c-diff colitis dysuria, resolved. no microbiologic evidence of UTI. leukocytosis secondary to the above, resolved. dilutional and mild blood loss anemia mild fasting hyperglycemia, likely from stress. nausea secondary to diagnosis number one, resolved subclinical hyperthyroid, likely from acute illness mild elevation in alk phos on admission, resolved. 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 see discharge summary and orders for details. patient agrees that if any urinary symptoms occur she'll let us know immediately but would want to avoid other antibiotics with the flagyl if possible. -cbc's with stable mild anemia and otherwise unremarkable from previous. cmp's generally stable and unremarkable from previous. free T4 normal. see previous notes for other testing and results from this stay. -free T3 pending. -finish 12 days more of flagyl PO as outpatient. continue prn norco orally and patient agrees to let us know if she has any constipation. will continue this for about 2 weeks. continue zofran prn ODT for 7 more days if needed. restart lisinopril and lipitor as outpatient but hold on restarting norvasc for now and see how bp looks at follow up. d/c home tylenol. -Dr. Dunlap, surgery consulted for GI bleed and for possible endoscopy. plan is to not do endoscopy for a few months but would be a consideration if she re-bleeds. COPD -continue patient's symbicort BID scheduled and ventolin prn. tobacco use -no s/s tobacco withdrawal. if any s/s withdrawal would consider nicotine patch. patient consulted again on smoking cessation. all other chronic medical conditions stable and no other changes to plan of care at this time. ppx -SCD's for DVT ppx while inpatient. pharmacologic DVT ppx contraindicated secondary to GI bleed. -PO diet as above for GI prophylaxis. -FULL CODE -dispo discharge to home today. see discharge summary and orders for details. DVT Prophylaxis: SCD's GI Prophylaxis: other (PO diet.) Resuscitation Status: Full Code - Time spent with patient Time with patient PN: 50 minutes Sepsis Assessment - Evaluation Severe Sepsis: none seen
--- NOTE | 2017-10-11 17:40 | Discharge Summary ---
ATTENDING PHYSICIAN Dr. Avila of [facility] ADMITTING PHYSICIAN Dr. Avila of [facility] CONSULTING PHYSICIAN Dr. Marlon Irby of General Surgery ANCILLARY SERVICES WHILE HERE There were none. DISCHARGE DIAGNOSES 1. Acute lower gastrointestinal bleed and colitis secondary to Clostridium difficile. 2. Dysuria, resolved. This was without microbiologic evidence of a urinary tract infection. 3. Leukocytosis on admission secondary to the above which has resolved. 4. Mild dilutional and blood loss anemia. 5. Mild fasting hyperglycemia, likely from stress. 6. Nausea and vomiting, likely secondary to diagnosis which has long since resolved. 7. Subclinical hyperthyroidism, likely from acute illness and will be followed as an outpatient. 8. Mild elevation in alkaline phosphatase on admission which is nonspecific and also resolved. 9. Recent hemorrhagic cerebrovascular accident in July of last year. 10. Hypertension. 11. Hyperlipidemia. 12. COPD. 13. History of tobacco use and smoking. DISCHARGE MEDICINES 1. [place] 5/325 mg 1-2 tablets p.o. q.6h. p.r.n. pain x14 days with no refills. 2. Flagyl 500 mg p.o. q.8h. x12 more days with no refills. 3. Ventolin HFA, 90 mcg two puffs orally inhaled q.6h. p.r.n. shortness of air/ wheezing. 4. Zofran ODT 4 mg p.o. q.6h. p.r.n. nausea/vomiting x7 days with no refills. 5. Lisinopril 20 mg p.o. daily. 6. Symbicort 80/4.5, 6.9 gram. One inhalation b.i.d. 7. Lipitor 80 mg p.o. q.h.s. 8. The patient's amlodipine and Flexeril are on hold at this time. Amlodipine is on hold secondary to the patient's relatively low blood pressures on admission. Please note that the [place], Flagyl and Zofran are all new medicines. The rest the patient has generally been on. DISCHARGE DIET Cardiac and low sodium. DISCHARGE ACTIVITY No changes from before hospitalization. PAIN MANAGEMENT Patient instructed that if abdominal pain worsens, she will let us know right away. She was also told that if she has any other pain or new discomfort to let us know right away. She will continue the [place] as noted above. PATIENT'S WOUND CARE In regards to wound care, the patient was told to let us know if any of the previous IV sites become red, swollen, painful or have drainage, she will let us know right away. ADDITIONAL INSTRUCTIONS 1. Orders given to nursing to discontinue all lines, IVs and telemetry the patient did not come in on before discharge. 2. The patient was told that if any issues worsen and/or new ones occur, that she will be seen immediately. 3. If the patient cannot access her medications or make her followup, she will let us let us know right away. 4. If the patient has any constipation on her current medicines she will let us know right away and we can recommend something for this. EXPECTED SIGNS/SYMPTOMS The patient was told her left lower abdominal pain should continue to improve and eventually resolve. The patient was told that the previous burning with urination should stay resolved and she should not have any other urinary symptoms. The patient was told that her dizziness that she had on admission should stay resolved as should her weakness, fevers, chills and body aches. The patient will return to care immediately if her current abdominal pain worsens and/or if new abdominal pain occurs. She will also return to care immediately if any nausea, vomiting, diarrhea, bloody/black stools, appetite loss, fevers, chills, body aches, fatigue, weakness, new numbness/weakness/ tingling should occur. She does agree to return to care immediately with this. She also agrees return to care immediately and was told to do so if she has any burning with urination, flank pain, urinary frequency or other urinary changes. Numbers were given to reach Dr. Avila both during and after business hours. Pending lab results will be followed up with provider. Sandoval. This will be discussed in clinic. PERTINENT FOLLOWUP The patient will follow up with Dr. Avila in two weeks with a CBC and CMP done the day before and sent to him. The patient will follow with Dr. Marlon Irby of General Surgery in one month to discuss colonoscopy. PERTINENT VITAL SIGNS DONE DURING THIS STAY The patient was afebrile throughout. The patient's pulse rate, respiration rates and oxygenation were unremarkable and generally normal while here. Blood pressure was initially a little on the low side and did get as low as 90/61. By discharge, she had returned to normotensive and was even a little hypertensive with her max blood pressure being 144/81 the day of discharge. PERTINENT PHYSICAL EXAM FINDINGS DURING THIS STAY The patient never had any clinical evidence of an upper urinary tract infection. Also the patient's left lower quadrant abdominal pain improved significantly throughout her stay. PERTINENT LABORATORY DONE WHILE HERE The patient had a leukocytosis with a white blood cell count of about 14,000 coming in. This had returned to normal by discharge and was 7200. Hemoglobin was 12.6 on admission and dropped to the mid-10s by discharge. It had been stable for several draws. Hematocrit was accordingly low as well. Platelets and the rest of the patient's CBCs were generally unremarkable. PTT and INR on admission were unremarkable. As far as the patient's chemistries go, the patient's sodiums, potassiums, chlorides, acid base status were all unremarkable. The patient's kidney function was normal throughout. The patient 's blood sugar did get as high as 128 fasting but was normal by discharge. The patient's magnesium, calcium were all unremarkable. The patient's alkaline phosphatase was 131 on admission but came down to normal throughout the rest of the stay. The patient's liver functions tests were otherwise unremarkable. The patient's protein indices were normal by discharge. The patient's lipase on admission was normal. TSH on admission was 0.36 which is just a little low. Free T4 was normal. Free T3 is pending. Urinalysis on admission was notable for some ketones, occult blood as well as some bilirubin and small amounts of leukocyte esterase, white blood cells as well as bacteria. This was likely from dehydration. Stool PCR on admission was positive for Clostridium difficile and otherwise negative. Stool for white blood cells was positive. CRP on admission was only minimally elevated at 10.3. The patient's blood type was O+ and the antibody screen was negative. Urine culture done on 10/08/2017 was negative. PERTINENT IMAGING DONE DURING THE STAY CT of the abdomen and pelvis with IV contrast done on 10/08/2017 was notable for a long segment of inflammation along the left colon. Differential at that time was considered inflammatory bowel disease versus infectious colitis. There were bilateral nonobstructing kidney stones noted but nothing that was obstructive or acute. HISTORY OF PRESENT ILLNESS AND HOSPITAL COURSE This is a pleasant 52-year-old female recently established with our clinic. The only major medical history she has was a recent cerebral hemorrhage in July of last year. This issue has been stable. She was in her usual state of health until the evening previous to admission at which time she started in with the acute onset of left lower quadrant abdominal pain. She initially had several episodes of nausea and vomiting which resolved but then she had up to 10 bouts of bright red bloody stools within the course of about a 12-hour period. She was scheduled for routine followup in the clinic and so she did not go the ER but presented to the clinic with this. She was sent immediately to the emergency room where she received copious amounts of IV normal saline and IV fentanyl for pain. Dr. Irby of General Surgery was consulted for the possibility of endoscopy. Dr. Irby was consulted and will likely do a colonoscopy within the next few months. The patient's stool PCR did come back for Clostridium difficile as noted above. The patient was initially started on Cipro and Flagyl. The Cipro was weaned off and this will be explained later. The patient was maintained on IV Flagyl and eventually converted to p.o. Flagyl. The patient was put on Zofran for an antiemetic as needed and given IV fentanyl for pain. The patient was eventually converted over to oral Zofran, oral Flagyl, oral [place] for these issues. She was started off with clear liquids and her diet advanced as tolerated. The day after admission, she did have a bit of a relapse and had some nausea and vomiting but overall her course was one of solid progression. Over the course of the next couple of days, her abdominal pain markedly improved, her bloody stools resolved and her bowel movements were formed and nonbloody by discharge. She was afebrile throughout and her other vitals were generally unremarkable as noted above. By discharge, she was taking solid food quite well without issue and was getting enough fluids on her own. She was given copious amounts of IV normal saline initially but this was discontinued as she was eating. Please see above for discharge orders as well as followup. Please see above for the extensive imaging and laboratory evaluation undertaken as noted above. Please see the CT report which notes documentation of the colitis. In regards to the patient's dysuria on admission: There was some concern for a urinary tract infection. The patient's UA is as noted above and the urine culture was unremarkable. Her urinary symptoms disappeared and went away the day after admission. Given there is no real microbiologic evidence of a UTI, we will keep her off the Cipro for now and she has strict instructions to let us know if she has any urinary symptoms again and she verbalized an understanding of this. We do want to give the yl an ability to do its job unopposed to any other antibiotics. The patient did have a mild anemia while here. This was from blood loss and likely dilutional as well. This was stable throughout the course of the last few days and will be followed as an outpatient. The patient did have a mild fasting hyperglycemia initially which was likely from stress. This has resolved without any issue. They will be followed as noted above. In regards to the patient's subclinical hyperthyroidism, this is likely from the acute illness. Please see the above for workup of this. Will follow this as an outpatient and likely recheck before we look at any for further workup beyond that. The patient's alkaline phosphatase was mildly elevated on admission. This resolved as noted above and was not an issue throughout the rest of her stay. The patient did have a recent hemorrhagic cerebrovascular accident in July of last year as noted. Her neurologic status was stable throughout the course of her stay here and this did not play into any great part in her stay. She will eventually need a colonoscopy as an outpatient but the recent stroke does confound the anesthesia part of this some. Dr. Irby is following for this and plans to do a colonoscopy within the next few months. In regards to the patient's hypertension: Her blood pressure meds were held as noted above. On admission, her blood pressure was a little on the low side so these were held. Her blood pressure came back up and she was even a little hypertensive on the day of discharge. We will restart her on her lisinopril and then follow labs as noted above. We will follow her blood pressure in a couple weeks at follow up. In regards to the patient's hyperlipidemia: The patient's statin medication was held while she was n.p.o. but restarted upon discharge. In regards to the patient's COPD: The patient was maintained on her home Symbicort b.i.d. as well as her Ventolin p.r.n. In regards to the patient's tobacco use: She has been consulted about smoking cessation and she agrees to consider. All other chronic medical conditions stable and no changes to plan of care at this time. For DVT prophylaxis, the patient was on SCDs while here. She was also ambulated t.i.d. during this stay during the last part of the stay. Obviously we could not use any pharmacological DVT prophylaxis secondary to the GI bleed. The patient was maintained on oral diet as noted above for GI prophylaxis. The patient was a FULL CODE while here. DISPOSITION Discharge to home today in stable and good condition. Obviously all the details for this patient's stay cannot be encapsulated in one summary. Please see the notes and records from the electronic medical record for this stay for further details. GALDINO
[2017-10-11 20:58] VITALS: PULSE 68
== END 2017-10-11 14:50 | disposition home or self-care (01) | DRG 378 ==
LOC: ED 11:10 → MED 13:29
PROVIDERS: ADMIT Internal Medicine; ATTEND Internal Medicine